=== PATIENT | male | born 2000 | race African-American/Black ===

== ENCOUNTER 2020-07-18 19:37 | Emergency (ER) | payer MEDICAID ==
[~2020-07-18] VITALS: Ht 165.1 cm; Wt 95.7 kg
[2020-07-18 19:37] VITALS: BP 130/69
== END 2020-07-18 19:44 | disposition left against medical advice (07) ==
LOC: M ED 19:37
DX: Z53.21 Procedure and treatment not carried out due to patient leaving prior to being seen by health care provider (principal)

== ENCOUNTER 2020-12-30 08:42 | Emergency (ER) | payer MEDICARE, MEDICAID ==
[~2020-12-30] VITALS: Ht 165.1 cm; Wt 102.3 kg
[2020-12-30 08:47] VITALS: BP 155/95
--- OUTSIDE RECORDS SUMMARY | 2020-12-30 09:43 | CCD ---
Author Author [facility] Organization [facility] Address Unknown Phone Unavailable Care Team Providers Care Music Adapter Name Role Phone Martin ABBOTT MD Unavailable Unavailable MARAVEGIAMartin Morales MD Unavailable Unavailable MARAVEMartin COHN MD Unavailable Unavailable Martin ABBOTT MD Unavailable Unavailable Martin ABBOTT MD Unavailable Unavailable Martin ABBOTT MD Unavailable Unavailable Martin ABBOTT MD Unavailable Unavailable Martin ABBOTT MD Unavailable Unavailable Martin ABBOTT MD Unavailable Unavailable Martin ABBOTT MD Unavailable Unavailable Martin ABBOTT MD Unavailable Unavailable Martin ABBOTT MD Unavailable Unavailable Martin ABBOTT MD Unavailable Unavailable MARAVEGIAS, N MAKENZIE HONG Unavailable Unavailable ANUG, H JAMIL CARE DIRECTOR RN Unavailable Unavailable AUNG, H JAMIL CARE DIRECTOR RN Unavailable Unavailable AUNG, H JAMIL CARE DIRECTOR RN Unavailable Unavailable AUNG, H JAMIL CARE DIRECTOR RN Unavailable Unavailable AUNG, H JAMIL CARE DIRECTOR RN Unavailable Unavailable AUNG, H JAMIL CARE DIRECTOR RN Unavailable Unavailable AUNG, H JAMIL CARE DIRECTOR RN Unavailable Unavailable AUNG, H JAMIL CARE DIRECTOR RN Unavailable Unavailable Re-disclosure Warning The records that you are about to access may contain information from federally-assisted alcohol or drug abuse programs. If such information is present, then the following federally mandated warning applies: This information has been disclosed to you from records protected by federal confidentiality rules (42 CFR part 2). The federal rules prohibit you from making any further disclosure of this information unless further disclosure is expressly permitted by the written consent of the person to whom it pertains or as otherwise permitted by 42 CFR part 2. A general authorization for the release of medical or other information is NOT sufficient for this purpose. The Federal rules restrict any use of the information to criminally investigate or prosecute any alcohol or drug abuse patient.The records that you are about to access may contain highly sensitive health information, the redisclosure of which is protected by Article 27-F of the [facility] Public Health law. If you continue you may have access to information: Regarding HIV / AIDS; Provided by facilities licensed or operated by the [facility] Office of Mental Health; or Provided by the [facility] Office for People With Developmental Disabilities. If such information is present, then the following [facility] mandated warning applies: This information has been disclosed to you from confidential records which are protected by state law. State law prohibits you from making any further disclosure of this information without the specific written consent of the person to whom it pertains, or as otherwise permitted by law. Any unauthorized further disclosure in violation of state law may result in a fine or assisted sentence or both. A general authorization for the release of medical or other information is NOT sufficient authorization for further disc losure. Allergies and Adverse Reactions Type Description Substance Reaction Status Data Source(s ) Drug allergy Drug allergy No Known Allergies [facility] Hospital Encounters Encounter Providers Location Date Indications Data Source(s ) Outpatient Attender: JAMIL MARY NP [facility] Jacek davis 10/12/2020 03:00:00 AM EST - 10/12/2020 03:00:00 AM EST [facility] ([facility]) Attender: JAMIL MARY NP 10/12/2020 12:00:00 AM EST [facility] ([facility]) Outpatient Attender: JAMIL MARY NP [facility] 08/24/2020 03:30:00 AM EDT - 08/24/2020 03:30:00 AM EDT [facility] ([facility]) Attender: JAMIL MARY NP 08/24/2020 12:00:00 AM EDT [facility] ([facility]) Emergency Attender: MAKENZIE ABBOTT MD ED-ED 0 08/04/2020 09:51:00 AM EDT - 08/04/2020 10:23:00 AM EDT RUNNY NOSE [facility] RUNNY NOSE Patient discharged. Outpatient Attender: JAMIL MARY NP [facility] susan 08/01/2020 10:15:00 AM EDT - 08/01/2020 10:15:00 AM EDT [facility] ([facility]) Attender: JAMIL MARY NP 08/01/2020 12:00:00 AM EDT [facility] ([facility]) Outpatient Attender: JAMIL MARY NP [facility] susan 01/13/2020 10:30:00 AM EST - 01/13/2020 10:30:00 AM EST [facility] ([facility]) Attender: JAMIL MARY NP 01/13/2020 12:00:00 AM EST [facility] ([facility]) Functional Status Medications Medication Brand Name Start Date Product Form Dose Route Admi nistrative Instructions Pharmacy Instructions Status Indications Reaction Description Data Source(s) 24 HR Guanfacine 4 MG Extended Release Oral Tablet guanfacin e 10/04/2020 12:00:00 AM EST 4 mg by mouth completed [id number] gu anfacine by mouth [id number] 10/04/2020 once a day 4 mg tablet extended release 24 hr 89250 [id number] Jamil [id number] Nurse Practitioner [facility] ([facility]) Sertraline 50 MG Oral Tablet sertraline 08/29/2020 12:00:00 AM EDT 50 mg by mouth completed [id number] sertraline by mouth [id number] 2019 once a day 50 mg tablet 07139 [id number] Jamil Mary [id number] Nurse Practitioner [facility] ([facility]) 24 HR Guanfacine 4 MG Extended Release Oral Tablet guanfacin e 08/24/2020 12:00:00 AM EDT 4 mg by mouth completed [id number] gu anfacine by mouth [id number] 08/24/2020 09/23/2020 once a day 30 4 mg tablet extended release 24 hr 96140 [id number] Jamil Mary [id number] Nurse Davida ayala [facility] ([facility]) 5 mg 07/22/2020 12:00:00 AM EDT tablet 30 TAKE 1 TABLET BY MOUTH ONCE DAILY TAKE 1 TABLET BY MOUTH ONCE DAILY SOLD: 07/28/2020 [facility] aripiprazole 5 MG Oral Tablet aripiprazole 07/19/2020 12:00:00 AM EDT 5 mg completed [id number] aripiprazole 07/19/2020 5 m g tablet 51711 [id number] Jamil Mary [id number] Nurse Practitioner [facility] ([facility]) 50 mg 07/15/2020 12:00:00 AM EDT tablet 45 TAKE 1 AND 1/2 TABLETS BY MOUTH ONCE DAILY TAKE 1 AND 1/2 TABLETS BY MOUTH ONCE DAILY SOLD: 07/28/2020 [facility] 24 HR Guanfacine 4 MG Extended Release Oral Tablet GUANFACIN E HCL 07/15/2020 12:00:00 AM EDT tablet extended release 24 hr 30 TA KE 1 TABLET BY MOUTH ONCE DAILY TAKE 1 TABLET BY MOUTH ONCE DAILY SOLD: 07/28/2020 [facility] 5 mg 01/13/2020 12:00:00 AM EST tablet 30 TAKE 1 TABLET BY MOUTH ONCE DAILY TAKE 1 TABLET BY MOUTH ONCE DAILY SOLD: 02/16/2020 [facility] 24 HR Guanfacine 4 MG Extended Release Oral Tablet GUANFACIN E HCL 01/13/2020 12:00:00 AM EST tablet extended release 24 hr 30 TA KE 1 TABLET BY MOUTH ONCE DAILY TAKE 1 TABLET BY MOUTH ONCE DAILY SOLD: 03/17/2020 [facility] 24 HR Guanfacine 4 MG Extended Release Oral Tablet GUANFACIN E HCL 01/13/2020 12:00:00 AM EST tablet extended release 24 hr 30 TA KE 1 TABLET BY MOUTH ONCE DAILY TAKE 1 TABLET BY MOUTH ONCE DAILY SOLD: 02/16/2020 [facility] 24 HR Guanfacine 4 MG Extended Release Oral Tablet GUANFACIN E HCL 01/13/2020 12:00:00 AM EST tablet extended release 24 hr 30 TA KE 1 TABLET BY MOUTH ONCE DAILY TAKE 1 TABLET BY MOUTH ONCE DAILY SOLD: 04/20/2020 [facility] 5 mg 01/13/2020 12:00:00 AM EST tablet 30 TAKE 1 TABLET BY MOUTH ONCE DAILY TAKE 1 TABLET BY MOUTH ONCE DAILY SOLD: 04/20/2020 [facility] 24 HR Guanfacine 4 MG Extended Release Oral Tablet GUANFACIN E HCL 01/13/2020 12:00:00 AM EST tablet extended release 24 hr 30 TA KE 1 TABLET BY MOUTH ONCE DAILY TAKE 1 TABLET BY MOUTH ONCE DAILY SOLD: 05/20/2020 [facility] 24 HR Guanfacine 4 MG Extended Release Oral Tablet GUANFACIN E HCL 01/13/2020 12:00:00 AM EST tablet extended release 24 hr 30 TA KE 1 TABLET BY MOUTH ONCE DAILY TAKE 1 TABLET BY MOUTH ONCE DAILY SOLD: 06/19/2020 [facility] 5 mg 01/13/2020 12:00:00 AM EST tablet 30 TAKE 1 TABLET BY MOUTH ONCE DAILY TAKE 1 TABLET BY MOUTH ONCE DAILY SOLD: 03/17/2020 [facility] 50 mg 01/13/2020 12:00:00 AM EST tablet 45 TAKE 1 AND 1/2 TABLETS BY MOUTH ONCE DAILY TAKE 1 AND 1/2 TABLETS BY MOUTH ONCE DAILY SOLD: 01/17/2020 [facility] 5 mg 01/13/2020 12:00:00 AM EST tablet 30 TAKE 1 TABLET BY MOUTH ONCE DAILY TAKE 1 TABLET BY MOUTH ONCE DAILY SOLD: 05/20/2020 [facility] 50 mg 01/13/2020 12:00:00 AM EST tablet 45 TAKE 1 AND 1/2 TABLETS BY MOUTH ONCE DAILY TAKE 1 AND 1/2 TABLETS BY MOUTH ONCE DAILY SOLD: 02/16/2020 [facility] 50 mg 01/13/2020 12:00:00 AM EST tablet 45 TAKE 1 AND 1/2 TABLETS BY MOUTH ONCE DAILY TAKE 1 AND 1/2 TABLETS BY MOUTH ONCE DAILY SOLD: 06/19/2020 [facility] 24 HR Guanfacine 4 MG Extended Release Oral Tablet GUANFACIN E HCL 01/13/2020 12:00:00 AM EST tablet extended release 24 hr 30 TA KE 1 TABLET BY MOUTH ONCE DAILY TAKE 1 TABLET BY MOUTH ONCE DAILY SOLD: 01/17/2020 [facility] 50 mg 01/13/2020 12:00:00 AM EST tablet 45 TAKE 1 AND 1/2 TABLETS BY MOUTH ONCE DAILY TAKE 1 AND 1/2 TABLETS BY MOUTH ONCE DAILY SOLD: 05/20/2020 [facility] Alprazolam 0.25 MG Oral Tablet alprazolam 01/13/2020 12:00:00 AM EST 0.25 mg by mouth completed [id number] alprazolam by mouth [id number] 02/2020 twice a day 30 0.25 mg tablet as needed 02250 [id number] Jamil khan [id number] Nurse Practitioner [facility] 50 mg 01/13/2020 12:00:00 AM EST tablet 45 TAKE 1 AND 1/2 TABLETS BY MOUTH ONCE DAILY TAKE 1 AND 1/2 TABLETS BY MOUTH ONCE DAILY SOLD: 04/20/2020 [facility] 5 mg 01/13/2020 12:00:00 AM EST tablet 30 TAKE 1 TABLET BY MOUTH ONCE DAILY TAKE 1 TABLET BY MOUTH ONCE DAILY SOLD: 06/19/2020 [facility] 5 mg 01/13/2020 12:00:00 AM EST tablet 30 TAKE 1 TABLET BY MOUTH ONCE DAILY TAKE 1 TABLET BY MOUTH ONCE DAILY SOLD: 01/17/2020 [facility] 50 mg 01/13/2020 12:00:00 AM EST tablet 45 TAKE 1 AND 1/2 TABLETS BY MOUTH ONCE DAILY TAKE 1 AND 1/2 TABLETS BY MOUTH ONCE DAILY SOLD: 03/17/2020 [facility] 24 HR Guanfacine 4 MG Extended Release Oral Tablet GUANFACIN E HCL 07/02/2019 12:00:00 AM EDT tablet extended release 24 hr 30 TA KE ONE TABLET BY MOUTH EVERY DAY TAKE ONE TABLET BY MOUTH EVERY DAY SOLD: 12/05/2019 [facility] 24 HR Guanfacine 4 MG Extended Release Oral Tablet GUANFACIN E HCL 07/02/2019 12:00:00 AM EDT tablet extended release 24 hr 30 TA KE ONE TABLET BY MOUTH EVERY DAY TAKE ONE TABLET BY MOUTH EVERY DAY SOLD: 11/08/2019 [facility] 5 mg 07/02/2019 12:00:00 AM EDT tablet 30 TAKE ONE TABLET BY MOUTH EVERY DAY TAKE ONE TABLET BY MOUTH EVERY DAY SOLD: 12/05/2019 [facility] 5 mg 07/02/2019 12:00:00 AM EDT tablet 30 TAKE ONE TABLET BY MOUTH EVERY DAY TAKE ONE TABLET BY MOUTH EVERY DAY SOLD: 11/08/2019 [facility] 50 mg 07/01/2019 12:00:00 AM EDT tablet 45 TAKE 1 & 1/2 TABLETS BY MOUTH ONCE DAILY TAKE 1 & 1/2 TABLETS BY MOUTH ONCE DAILY SOLD: 11/08/2019 [facility] 50 mg 07/01/2019 12:00:00 AM EDT tablet 45 TAKE 1 & 1/2 TABLETS BY MOUTH ONCE DAILY TAKE 1 & 1/2 TABLETS BY MOUTH ONCE DAILY SOLD: 12/05/2019 [facility] Insurance Providers Payer name Policy type / Coverage type Policy ID Covered republican ID Covered republican's relationship to crowder Policy Crowder Plan Information EMEDNY [id number] SP [id number] SELF PAY S Medicaid [facility] Other 0 Self 0 MEDICAID [id number] SP [id number] Problems, Conditions, and Diagnoses Code Display Name Description Problem Type Effective Dates Data Source(s) F31.9 Bipolar disorder, unspecified Bipolar I Disorder, Current or most recent episode manic, Unspecified Condition 10/12/2020 12:00:00 AM EST [facility] ([facility]) F43.10 Post-traumatic stress disorder, unspecif ied Posttraumatic Stress Disorder (includes Posttraumatic Stress Disorder for Children 6 Years and Younger) Condition 10/12/2020 12:00:00 AM EST [facility] ([facility]) Surgeries/Procedures Procedure Description Date Indications Data Source(s) [facility] Telemed E/M Lvl 3--Est pt 10/12/2020 12:00:00 AM EST - 10/12/2020 12:00:00 AM EST [facility] ([facility]) MHC Telemed E/M Lvl 3--Est pt 10/12/2020 12:00:[address] [facility] ([facility]) MHCTelemed E/M Lvl 4--Est pt 08/24/2020 12:00:00 AM EDT - 08/24/2020 12:00:00 AM EDT [facility] ([facility]) MHCTelemed E/M Lvl 4--Est pt 08/24/2020 12:00:00 AM ED T [facility] ([facility]) OFFICE OUTPATIENT VISIT 15 MINUTES 08/01 12:00:00 AM EDT - 08/01/2020 12:00:00 AM EDT [facility] ([facility]) OFFICE OUTPATIENT VISIT 15 MINUTES 08/01/2020 12:00:00 AM EDT [facility] ([facility]) OFFICE OUTPATIENT VISIT 15 MINUTES 01/12 12:00:00 AM EST - 01/13/2020 12:00:00 AM EST [facility] ([facility]) OFFICE OUTPATIENT VISIT 15 MINUTES 01/13/2020 12:00:00 AM EST [facility] ([facility]) Social History Code Duration Value Status Description Data Source(s ) Smoking 10/12/2020 12:00:00 AM EST Unknown if ever smoked comp leted Unknown if ever smoked [facility] ([facility]) Smoking 08/24/2020 12:00:00 AM EDT Unknown if ever smoked comp leted Unknown if ever smoked [facility] ([facility]) Smoking 08/01/2020 12:00:00 AM EDT Unknown if ever smoked comp leted Unknown if ever smoked [facility] ([facility]) Smoking 01/13/2020 12:00:00 AM EST Unknown if ever smoked comp leted Unknown if ever smoked [facility] ([facility]) Vital Signs ID Date Data Source UNK Name Value Range Interpretation Code Description Data Source(s) Diastolic blood pressure 0 mm[Hg] Normal (applies to non-numeric results) 0 mm[Hg] [facility] ([facility]) Systolic blood pressure 0 mm[Hg] Normal (applies t o non-numeric results) 0 mm[Hg] [facility] ([facility]) Body mass index (BMI) [Ratio] 0.00 kg/m2 No rmal (applies to non-numeric results) 0.00 kg/m2 [facility] ([facility]) Body weight Measured 0.00 lbs Normal (applies to n on-numeric results) [facility] Body height 0.00 in Normal (applies to non-numeric resu lts) 0.00 in [facility] ([facility]) Diastolic blood pressure 0 mm[Hg] Normal (applies to non-numeric results) 0 mm[Hg] [facility] ([facility]) Systolic blood pressure 0 mm[Hg] Normal (applies t o non-numeric results) 0 mm[Hg] [facility] ([facility]) Body mass index (BMI) [Ratio] 0.00 kg/m2 No rmal (applies to non-numeric results) 0.00 kg/m2 [facility] ([facility]) Body weight Measured 0.00 lbs Normal (applies to n on-numeric results) 0.00 lbs [facility] ([facility]) Body height 0.00 in Normal (applies to non-numeric resu lts) 0.00 in [facility] ([facility]) Diastolic blood pressure 0 mm[Hg] Normal (applies to non-numeric results) 0 mm[Hg] [facility] Systolic blood pressure 0 mm[Hg] Normal (applies t o non-numeric results) 0 mm[Hg] [facility] Body mass index (BMI) [Ratio] 0.00 kg/m2 No rmal (applies to non-numeric results) 0.00 kg/m2 [facility] ([facility]) Body weight Measured 0.00 lbs Normal (applies to n on-numeric results) 0.00 lbs [facility] ([facility]) Body height 0.00 in Normal (applies to non-numeric resu lts) 0.00 in [facility] ([facility]) ID Date Data Source [id number] 08/04/2020 10:27:00 AM EDT [facility] spital Name Value Range Interpretation Code Description Data Source(s) Weight Measurement Method 8 8 [facility] Weight 2640 2640 [facility] pital Temperature Source 7 7 [facility] Temperature 97.6 97.6 [facility] spital Respiratory Effort 1 1 [facility] Respiratory Rate [address] [facility] Pulse Assessment Method 4 [address] [facility] Pulse Rate 87 87 [facility]ital Height 65 65 [facility] 105/68 105/68 [facility] Weight Measurement Method 8 8 [facility] Weight 2640 2640 [facility] pital Temperature Source 7 7 [facility] Temperature 97.6 97.6 [facility] spital Respiratory Effort 1 1 [facility] Respiratory Rate [address] [facility] Pulse Assessment Method 4 [address] [facility] Pulse Rate 87 87 [facility] pital Height 65 65 [facility] Blood Pressure 105/68 105/68 [facility]
--- OUTSIDE RECORDS SUMMARY | 2020-12-30 09:43 | CCD ---
Author Author Peter Mary Lamar Organization Unknown Address [address] [place] [phone] Phone Care Team Providers Care [employer] Crew Lead Name Role Phone Lamar Mary PCP Allergies, Adverse Reactions, Alerts No Data in Section Problem List Concept Problem Description Status Start Date Created Date Resolv ed Date Snomed Code F43.10 Posttraumatic Stress Disorde r (includes Posttraumatic Stress Disorder for Children 6 Years and Younger) Active 10/28/2015 10/28/2015 F31.9 Bipolar I Disorder, Current or most rece nt episode manic, Unspecified Active 10/28/2015 10/28/2015 Medications Rx Norm Medication Route Route Concept Start Date Stop Date Dosage Gentry quency Duration Formula Strength Dosage Form Dosage Form Code Dosage Description Medication Id Account Npid Author First Name Author Last Name Taxonomy Code Taxonomy Desc Phone Number [id number] alprazolam by mouth [id number] 01/13/2020 twice a day 30 0.25 mg tablet as needed 91759 [id number] Lamar Mary [id number] Nurse Practitio ner [id number] aripiprazole 07/19/2020 5 mg tablet 40082 310800 [id number] Lamar Mary [id number] Nurse Practitioner [id number] [phone] [id number] sertraline by mouth [id number] 08/29/2020 once a day 50 mg tab let 93088 [id number] Lamar Mary [id number] Nurse Practitioner [id number] guanfacine by mouth [id number] 10/04/2020 once a day 4 m g tablet extended release 24 hr 05691 [id number] Lamar Mary [id number] Nurse Practitioner [id number] Social History Social History Element Description Concept Effective Date Smoking Status Unknown if ever smoked [id number] Immunizations No Data in Section Vital Signs Encounter Date Height Ins Weight Lbs Bmi Bp Systolic Bp Diastoli c Oxygen Saturation Respiration Rate Pulse Rate Body Temp Head Circumference Heigh t Lying 10/12/2020 0.00 0.00 0.00 0 0 0.00 0 0 0.00 0.0 0.0 0 Procedures Date Concept Id Description Targeted Site Concept Targeted Site Concept Type 10/12/2020 [id number] [facility] Telemed E/M Lvl 3--Est pt CPT Patient has no history of implantable de vices Encounters Encounter Start Date End Date Encounter Type Description Diagnosis Di agnosis Desc Location Author First Name Author Last Name Npid Taxonomy Cod e Taxonomy Desc Phone Number Location Addr1 Location Addr2 Location [facility] Location Sta te Location Zip [id number] 10/12/2020 10/12/2020 [id number] [facility] Telemed E/M Lvl 3--Est p t F43.10 Post- traumatic stress disorder, unspecified [facility] Lamar [id number] Nurse Practitioner [phone] [address] [place] [address] [place] [phone] Plan of Treatment No Data in Section Lab Results No Data in Section Instructions No Data in Section Functional Cognitive Status No Data in Section Insurance Providers Insurance Id Policy Effective Date Policy Thru Date Company N jason [id number] MEDICARE [id number] 2012 MEDICAID
[2020-12-30] MEDS ORDERED: LIDOCAINE 2% W/EPINEPHRINE 20ML VIAL **PRES FREE INJ ONE (09:45)
[2020-12-30] MEDS ORDERED: DERMABOND TOPICAL SKIN ADHESIVE TOP ONE (09:45)
[2020-12-30] MEDS ORDERED: BACI500O21 TOP (10:16)
== END 2020-12-30 10:37 | disposition home or self-care (01) ==
LOC: M ED 08:42 → EDBD 08:42 → M ED 10:37
DX: S01.81XA Laceration without foreign body of other part of head, initial encounter (principal); Y04.8XXA Assault by other bodily force, initial encounter; Y92.410 Unspecified street and highway as the place of occurrence of the external cause; Y07.9 Unspecified perpetrator of maltreatment and neglect

== ENCOUNTER 2023-07-18 14:55 | Inpatient (IN) | payer MEDICARE, MEDICAID ==
[~2023-07-18] VITALS: Ht 165.1 cm; Wt 68.8 kg
[~2023-07-18 14:55] MED LIST: BACI500O21 TOP
[2023-07-18] MEDS ORDERED: OLANZapine ORAL DISINTEGRATING TAB 5MG PO ONE (19:00)
[2023-07-18] MEDS ORDERED: SERT-141 PO (22:08)
[2023-07-18] MEDS ORDERED: ABIL1TAB13 PO (22:08)
[2023-07-18] MEDS ORDERED: HOME MED LIST COMPLETE! XX SCH (22:10)
[2023-07-19] MEDS: ARIPiprazole 2 MG TAB PO SCH (10:05)
[2023-07-19] MEDS: SERTRALINE HCL 50 MG TAB PO SCH (10:05)
[2023-07-19 18:32] VITALS: BP 159/93; TEMP 99; O2SAT 96
[2023-07-19 20:10] VITALS: BP 140/80
[2023-07-20 06:06] VITALS: BP 142/58; TEMP 97; O2SAT 99
[2023-07-20] MEDS ORDERED: MOM 30ML SUSPENSION UDC PO PRN (08:10)
[2023-07-20] MEDS ORDERED: ACETAMINOPHEN TAB 650MG DOSE (2X325MG) PO PRN (08:10)
[2023-07-20] MEDS ORDERED: diphenhydrAMINE 25MG CAP PO PRN (08:10)
[2023-07-20] MEDS ORDERED: traZODone 50 MG TAB PO PRN (08:10)
[2023-07-20] MEDS ORDERED: MAALOX 30 ML SUSP *UDC PO PRN (08:10)
[2023-07-20] MEDS ORDERED: IBUPROFEN 400MG TAB PO PRN (08:10)
[2023-07-20] MEDS: ARIPiprazole 2 MG TAB PO SCH (08:44)
[2023-07-20] MEDS: SERTRALINE HCL 50 MG TAB PO SCH (08:44)
[2023-07-20 18:00] VITALS: BP 140/78; TEMP 99.1
[2023-07-21 05:52] VITALS: BP 116/60; TEMP 97.7; O2SAT 99
[2023-07-21] MEDS: ARIPiprazole 2 MG TAB PO SCH (08:06)
[2023-07-21] MEDS: SERTRALINE HCL 50 MG TAB PO SCH (08:06)
[2023-07-21 18:00] VITALS: BP 138/87; TEMP 98.2
[2023-07-22 06:34] VITALS: BP 105/69; TEMP 98.2; O2SAT 99
[2023-07-22] MEDS: SERTRALINE HCL 50 MG TAB PO SCH (07:41)
[2023-07-22] MEDS: ARIPiprazole 2 MG TAB PO SCH (07:41)
[2023-07-22 16:08] VITALS: BP 138/82; TEMP 98.5; O2SAT 97
[2023-07-23 06:34] VITALS: BP 127/71; TEMP 97.8; O2SAT 96
[2023-07-23] MEDS: SERTRALINE HCL 50 MG TAB PO SCH (08:05)
[2023-07-23] MEDS: ARIPiprazole 2 MG TAB PO SCH (08:05)
[2023-07-23] MEDS ORDERED: SERT50TA29 PO (08:14)
[2023-07-23] MEDS ORDERED: TRAZ-252 PO (08:14)
[2023-07-23] MEDS ORDERED: ABIL1TAB13 PO (08:14)
[2023-07-23 16:16] VITALS: BP 127/70; TEMP 99.1; O2SAT 99
== END 2023-07-23 17:21 | disposition home or self-care (01) | DRG 885 ==
LOC: M ED 14:55 → M ED INP 07-19 17:12 → M PSY 07-19 18:32
PROVIDERS: ADMIT Student in an Organized Health Care Education/Training Program; ATTEND Student in an Organized Health Care Education/Training Program
DX: F39 Unspecified mood [affective] disorder (principal); Z79.899 Other long term (current) drug therapy; F17.210 Nicotine dependence, cigarettes, uncomplicated; F41.9 Anxiety disorder, unspecified

== ENCOUNTER 2023-10-21 11:09 | Inpatient (IN) | payer MEDICARE, MEDICAID ==
[~2023-10-21] VITALS: Ht 165.1 cm; Wt 61.3 kg
[~2023-10-21 11:09] MED LIST changes: +ABIL1TAB13 PO; +SERT-141 PO; +SERT50TA29 PO; +TRAZ-252 PO
[2023-10-21 12:14] LABS: HEMATOCRIT 47.3 % (42.0-52.0); HEMOGLOBIN 16.4 g/dl (13.5-17.5); MEAN CORPUSCULAR HEMOGLOBIN 30.5 pg (27.0-33.0); MEAN CORPUSCULAR HGB CONC 34.7 g/dl (32.0-36.5); MEAN CORPUSCULAR VOLUME 87.9 fl (80.0-96.0); PLATELET COUNT, AUTOMATED 201 10^3/uL (150-450); RED BLOOD COUNT 5.38 10^6/uL (4.30-6.10); WHITE BLOOD COUNT 9.2 10^3/uL (4.0-10.0)
[2023-10-21 12:38] LABS: ETHYL ALCOHOL (ETHANOL) < 0.003 % (0.000-0.010)
[2023-10-21 12:39] LABS: SALICYLATE LEVEL < 3.0 MG/DL (<30)
[2023-10-21 12:40] LABS: ALBUMIN 4.1 G/DL (3.2-5.2); ALKALINE PHOSPHATASE 85 U/L (46-116); ALT/SGPT 21 U/L (7.0-40); AST/SGOT 19 U/L (<34); BILIRUBIN,DIRECT 0.3 MG/DL (<0.4); BILIRUBIN,TOTAL 0.8 MG/DL (0.3-1.2); BLOOD UREA NITROGEN 15 MG/DL (9-23); CALCIUM LEVEL 9.3 MG/DL (8.5-10.1); CARBON DIOXIDE LEVEL 25 MMOL/L (20-31); CHLORIDE LEVEL 103 MMOL/L (98-107); CREATININE FOR GFR 0.75 MG/DL (0.70-1.30); GLOMERULAR FILTRATION RATE > 60.0 (>60); GLUCOSE, FASTING 87 MG/DL (60-100); POTASSIUM SERUM 3.7 MMOL/L (3.5-5.1); SODIUM LEVEL 138 MMOL/L (136-145); TOTAL PROTEIN 7.9 G/DL (5.7-8.2)
[2023-10-21 12:41] LABS: THYROID STIMULATING HORMONE 0.693 uIU/ML (0.55-4.78)
[2023-10-21] MEDS ORDERED: MED REC IN PROGRESS XX SCH (14:25)
[2023-10-21 15:07] LABS: AMPHETAMINES LEVEL URINE NEGATIVE (NEGATIVE); BARBITURATES URINE NEGATIVE (NEGATIVE); COCAINE METABOLITE URINE NEGATIVE (NEGATIVE)
[2023-10-21 15:08] LABS: BENZODIAZEPINES URINE NEGATIVE (NEGATIVE); METHADONE URINE NEGATIVE (NEGATIVE); OPIATES URINE NEGATIVE (NEGATIVE); PHENCYCLIDINE URINE NEGATIVE (NEGATIVE)
[2023-10-21 15:10] LABS: CANNABINOIDS URINE POSITIVE (NEGATIVE)
[2023-10-21] MEDS ORDERED: ARIP1TAB4 PO (15:38)
[2023-10-21] MEDS ORDERED: SERT-141 PO (15:38)
[2023-10-21] MEDS ORDERED: TRAZ-252 PO (15:38)
[2023-10-21] MEDS ORDERED: HOME MED LIST COMPLETE! XX SCH (15:45)
[2023-10-21] MEDS ORDERED: ACETAMINOPHEN TAB 650MG DOSE (2X325MG) PO PRN (20:05)
[2023-10-21] MEDS ORDERED: traZODone 50 MG TAB PO PRN (20:05)
[2023-10-21] MEDS ORDERED: MOM 30ML SUSPENSION UDC PO PRN (20:05)
[2023-10-21] MEDS ORDERED: diphenhydrAMINE 25MG CAP PO PRN (20:05)
[2023-10-21] MEDS ORDERED: NICOTINE 21MG/24HR 1 EA TRANSDERMAL TD PRN (20:05)
[2023-10-21] MEDS ORDERED: MAALOX 30 ML SUSP *UDC PO PRN (20:05)
[2023-10-21] MEDS ORDERED: IBUPROFEN 400MG TAB PO PRN (20:05)
[2023-10-21 23:36] VITALS: BP 128/63; TEMP 98.6; O2SAT 18
[2023-10-22 06:25] VITALS: BP 144/63; TEMP 97; O2SAT 98
[2023-10-22] MEDS: SERTRALINE HCL 50 MG TAB PO SCH ×2 (09:00→15:05)
[2023-10-22 17:46] VITALS: BP 150/75; TEMP 99; O2SAT 99
[2023-10-22] MEDS: ARIPiprazole 2 MG TAB PO SCH (21:03)
[2023-10-23 06:12] VITALS: BP 110/76; TEMP 97.7; O2SAT 97
[2023-10-23] MEDS: SERTRALINE HCL 50 MG TAB PO SCH (09:18)
[2023-10-23 18:41] VITALS: BP 137/82; TEMP 97.3; O2SAT 97
[2023-10-23] MEDS: ARIPiprazole 2 MG TAB PO SCH (20:11)
[2023-10-24 06:42] VITALS: BP 123/60; TEMP 97.9; O2SAT 100
[2023-10-24] MEDS: SERTRALINE HCL 50 MG TAB PO SCH (08:23)
[2023-10-24 17:32] VITALS: BP 136/87; TEMP 98.6; O2SAT 97
[2023-10-25 06:39] VITALS: BP 140/62; TEMP 97.3; O2SAT 100
[2023-10-25] MEDS: SERTRALINE HCL 50 MG TAB PO SCH (07:40)
[2023-10-25] MEDS ORDERED: ABIL1TAB11 PO (09:18)
== END 2023-10-25 12:30 | disposition home or self-care (01) | DRG 885 ==
LOC: M ED 11:09 → M ED INP 20:03 → M PSY 23:19
PROVIDERS: ADMIT Student in an Organized Health Care Education/Training Program; ATTEND Psychiatry & Neurology Psychiatry
DX: F31.9 Bipolar disorder, unspecified (principal); F12.20 Cannabis dependence, uncomplicated; F17.200 Nicotine dependence, unspecified, uncomplicated; Z79.899 Other long term (current) drug therapy

== ENCOUNTER → 2024-01-22 | Outpatient (CLI) | payer MEDICARE, MEDICAID ==
[~2024-01-22] MED LIST changes: +ABIL1TAB11 PO; +ARIP1TAB4 PO
[2024-01-22 13:09] LABS: BASO % 0.3 % (0.0-1.0); EOS # 0.1 10^3/uL (0.0-0.5); EOS % 1.1 % (0.0-3.0); HEMOGLOBIN 14.6 g/dl (13.5-17.5); LYMPH # 1.9 10^3/uL (1.5-5.0); LYMPH % 30.4 % (24.0-44.0); MEAN CORPUSCULAR HEMOGLOBIN 30.9 pg (27.0-33.0); MEAN CORPUSCULAR HGB CONC 34.8 g/dl (32.0-36.5); MONO # 0.7 10^3/uL (0.0-0.8); MONO % 10.6 % (2.0-8.0); NEUTROPHILS # 3.6 10^3/uL (1.5-8.5); NEUTROPHILS % 57.1 % (36.0-66.0); PLATELET COUNT, AUTOMATED 223 10^3/uL (150-450); RED BLOOD COUNT 4.72 10^6/uL (4.30-6.10); WHITE BLOOD COUNT 6.2 10^3/uL (4.0-10.0)
[2024-01-22 13:33] LABS: ALBUMIN 3.7 G/DL (3.2-5.2); ALKALINE PHOSPHATASE 77 U/L (46-116); ALT/SGPT 26 U/L (7.0-40); AST/SGOT 18 U/L (<34); BILIRUBIN,TOTAL 0.6 MG/DL (0.3-1.2); BLOOD UREA NITROGEN 14 MG/DL (9-23); CALCIUM LEVEL 8.7 MG/DL (8.5-10.1); CARBON DIOXIDE LEVEL 32 MMOL/L (20-31); CHLORIDE LEVEL 104 MMOL/L (98-107); CREATININE FOR GFR 0.78 MG/DL (0.70-1.30); GLOMERULAR FILTRATION RATE > 60.0 (>60); GLUCOSE, FASTING 92 MG/DL (60-100); POTASSIUM SERUM 3.9 MMOL/L (3.5-5.1); SODIUM LEVEL 137 MMOL/L (136-145); TOTAL PROTEIN 7.3 G/DL (5.7-8.2)
[2024-01-22 13:34] LABS: THYROID STIMULATING HORMONE 0.545 uIU/ML (0.55-4.78)
[2024-01-22 13:35] LABS: FOLATE 22.4 NG/ML (>5.4); TOTAL 25(OH) VITAMIN D 23.8 NG/ML (20.0-100.0); VITAMIN B12 LEVEL 611 PG/ML (211-911)
== END ==
LOC: M LAB 12:33
PROVIDERS: ATTEND Specialist
DX: F31.9 Bipolar disorder, unspecified (principal); Z79.899 Other long term (current) drug therapy

== ENCOUNTER 2024-06-22 06:45 | Inpatient (IN) | payer MEDICARE, MEDICAID ==
[~2024-06-22] VITALS: Ht 165.1 cm; Wt 71.6 kg
[~2024-06-22 06:45] MED LIST changes: +ABIL20TA5 PO; +AMOX875T2 PO; +ZOLO25TA PO
[2024-06-22 07:42] LABS: HEMATOCRIT 46.6 % (42.0-52.0); MEAN CORPUSCULAR HEMOGLOBIN 30.8 pg (27.0-33.0); MEAN CORPUSCULAR HGB CONC 34.3 g/dl (32.0-36.5); MEAN CORPUSCULAR VOLUME 89.6 fl (80.0-96.0); PLATELET COUNT, AUTOMATED 186 10^3/uL (150-450); WHITE BLOOD COUNT 7.3 10^3/uL (4.0-10.0)
[2024-06-22 08:06] LABS: ETHYL ALCOHOL (ETHANOL) 0.108 % (0.000-0.010)
[2024-06-22 08:08] LABS: SALICYLATE LEVEL < 3.0 MG/DL (<30)
[2024-06-22 08:09] LABS: ALBUMIN 3.9 G/DL (3.2-5.2); ALKALINE PHOSPHATASE 86 U/L (46-116); ALT/SGPT 38 U/L (7.0-40); AST/SGOT 28 U/L (<34); BILIRUBIN,DIRECT 0.2 MG/DL (<0.4); BILIRUBIN,TOTAL 0.5 MG/DL (0.3-1.2); BLOOD UREA NITROGEN 10 MG/DL (9-23); CALCIUM LEVEL 8.8 MG/DL (8.5-10.1); CARBON DIOXIDE LEVEL 29 MMOL/L (20-31); CHLORIDE LEVEL 102 MMOL/L (98-107); GLOMERULAR FILTRATION RATE > 60.0 (>60); GLUCOSE, FASTING 96 MG/DL (60-100); POTASSIUM SERUM 4.1 MMOL/L (3.5-5.1); SODIUM LEVEL 136 MMOL/L (136-145)
[2024-06-22 08:11] LABS: THYROID STIMULATING HORMONE 0.239 uIU/ML (0.55-4.78)
[2024-06-22 09:00] LABS: FREE T4 1.25 NG/DL (0.89-1.76)
[2024-06-22 09:22] LABS: AMPHETAMINES LEVEL URINE NEGATIVE (NEGATIVE); BARBITURATES URINE NEGATIVE (NEGATIVE); BENZODIAZEPINES URINE NEGATIVE (NEGATIVE); COCAINE METABOLITE URINE NEGATIVE (NEGATIVE); METHADONE URINE NEGATIVE (NEGATIVE); OPIATES URINE NEGATIVE (NEGATIVE); PHENCYCLIDINE URINE NEGATIVE (NEGATIVE)
[2024-06-22 09:23] LABS: CANNABINOIDS URINE POSITIVE (NEGATIVE)
[2024-06-22] MEDS ORDERED: HOME MED LIST COMPLETE! XX SCH (12:00)
[2024-06-22] MEDS: LORazepam 1 MG TAB PO ONE (13:41)
[2024-06-23] MEDS ORDERED: MAALOX 30 ML SUSP *UDC PO PRN (12:20)
[2024-06-23] MEDS ORDERED: ACETAMINOPHEN TAB 650MG DOSE (2X325MG) PO PRN (12:20)
[2024-06-23] MEDS ORDERED: MOM 30ML SUSPENSION UDC PO PRN (12:20)
[2024-06-23] MEDS ORDERED: diphenhydrAMINE 25MG CAP PO PRN (12:20)
[2024-06-23] MEDS ORDERED: IBUPROFEN 400MG TAB PO PRN (12:20)
[2024-06-23 16:44] VITALS: BP 136/74
[2024-06-23] MEDS ORDERED: LORazepam 2 MG TAB PO PRN (18:55)
[2024-06-23] MEDS: THIAMINE 100 MG TAB PO SCH (21:06)
[2024-06-23] MEDS: FOLIC ACID 1MG TAB PO SCH (21:07)
[2024-06-23] MEDS: MULTIVITAMINS/MINERALS THERAP 1 TAB PO SCH (21:07)
[2024-06-23 21:43] VITALS: BP 144/92; TEMP 98.3; O2SAT 100
[2024-06-23 21:44] VITALS: BP 144/92
[2024-06-23 22:01] VITALS: BP 144/92
[2024-06-24 06:23] VITALS: BP 132/61; TEMP 98; O2SAT 98
[2024-06-24 06:24] VITALS: BP 132/61
[2024-06-24 15:02] VITALS: BP 126/74; TEMP 98.3; O2SAT 99
[2024-06-24 22:05] VITALS: BP 128/82; TEMP 97.5; O2SAT 98
[2024-06-24 22:06] VITALS: BP 128/82
[2024-06-25 06:06] VITALS: BP 113/59; TEMP 98.3; O2SAT 99
[2024-06-25 14:00] VITALS: BP 130/80
[2024-06-25 17:43] VITALS: BP_SYST 130; BP_SYST 143; BP_DIAS 80; BP_DIAS 88; TEMP 96.7; O2SAT 100; O2SAT 99
[2024-06-25] MEDS: traZODone 50 MG TAB PO PRN (20:57)
[2024-06-25 22:00] VITALS: BP 136/84
[2024-06-25 22:01] VITALS: BP 136/84; TEMP 98.1; O2SAT 100
[2024-06-26 06:09] VITALS: BP 136/64; TEMP 97.8; O2SAT 100
[2024-06-26 06:10] VITALS: BP 136/64
[2024-06-26] MEDS ORDERED: ABIL1TAB11 PO (08:37)
== END 2024-06-26 10:59 | disposition home or self-care (01) | DRG 885 ==
LOC: M ED 06:45 → MERGE 06-23 12:16 → M ED INP 06-23 12:16 → M PSY 06-23 16:00 → UNDODISIN 06-26 08:40
PROVIDERS: ADMIT Psychiatry & Neurology Child & Adolescent Psychiatry; ATTEND Psychiatry & Neurology Child & Adolescent Psychiatry
DX: F31.9 Bipolar disorder, unspecified (principal); F10.20 Alcohol dependence, uncomplicated; F12.10 Cannabis abuse, uncomplicated; Z62.810 Personal history of physical and sexual abuse in childhood; Z91.51 Personal history of suicidal behavior; E02 Subclinical iodine-deficiency hypothyroidism; Z63.5 Disruption of family by separation and divorce

== ENCOUNTER 2025-08-04 12:58 | Emergency (ER) | payer MEDICARE, MEDICAID ==
[~2025-08-04] VITALS: Ht 165.1 cm; Wt 70.0 kg
[2025-08-04 16:29] VITALS: BP 118/61; TEMP 97.7; O2SAT 100
== END 2025-08-04 17:44 | disposition home or self-care (01) ==
LOC: M ED 16:27
DX: R06.02 Shortness of breath (principal); Z53.9 Procedure and treatment not carried out, unspecified reason; F90.9 Attention-deficit hyperactivity disorder, unspecified type; F41.9 Anxiety disorder, unspecified; F31.30 Bipolar disorder, current episode depressed, mild or moderate severity, unspecified